=== PATIENT | female | born 1985 | race African-American/Black ===

== ENCOUNTER 2024-05-05 05:33 | Emergency (ER) | payer OTHER ==
[~2024-05-05] VITALS: Ht 157.5 cm; Wt 77.3 kg
[2024-05-05 05:37] VITALS: TEMP 97.6
[2024-05-05] MEDS: TraMADol HCL 50 MG TABLET PO ONE (06:13)
[2024-05-05] MEDS: KETOROLAC TROMETHAMINE 30 MG/ML VIAL IM ONE (06:33)
[2024-05-05 06:37] VITALS: BP 128/83; PULSE 74; RESP 18
== END 2024-05-05 07:07 | disposition home or self-care (01) ==
LOC: EMS 05:34
DX: G56.01 Carpal tunnel syndrome, right upper limb (principal); E11.9 Type 2 diabetes mellitus without complications; Z88.6 Allergy status to analgesic agent
CPT/HCPCS: 99283; 73110; 29125; 96372; J1885

== ENCOUNTER 2025-03-02 01:39 | Emergency (ER) | payer OTHER ==
[~2025-03-02] VITALS: Ht 165.1 cm; Wt 59.1 kg
[2025-03-02 01:40] VITALS: TEMP 97
[2025-03-02 04:03] VITALS: BP 118/81; PULSE 81; RESP 16; O2SAT 99
== END 2025-03-02 04:21 | disposition home or self-care (01) ==
LOC: EMS 01:40
DX: S06.0X0A Concussion without loss of consciousness, initial encounter (principal); S00.03XA Contusion of scalp, initial encounter; Y04.0XXA Assault by unarmed brawl or fight, initial encounter; Y93.89 Activity, other specified; Y92.89 Other specified places as the place of occurrence of the external cause; Y99.8 Other external cause status
CPT/HCPCS: 99283; Z7502